=== PATIENT | male | born 1985 ===

== ENCOUNTER 2018-11-10 07:38 | Outpatient (CLI) | payer OTHER ==
[~2018-11-10] VITALS: Ht 170.2 cm; Wt 127.0 kg
== END 2018-11-10 08:00 | disposition home or self-care (01) ==
LOC: OFIC 805 07:38
DX: G47.33 Obstructive sleep apnea (adult) (pediatric) (principal); J34.89 Other specified disorders of nose and nasal sinuses; J30.89 Other allergic rhinitis

== ENCOUNTER 2018-12-13 07:07 | Outpatient (CLI) | payer OTHER | END 2018-12-13 07:10 | disposition home or self-care (01) | LOC: NUCLEAR 07:07 | DX: R07.89 Other chest pain (principal); R06.02 Shortness of breath | CPT/HCPCS: 78452; 93017; A9500 ==